=== PATIENT | male | born 1990 | race Hispanic/Latino ===

== ENCOUNTER 2018-10-21 07:55 | Emergency (ER) | payer BC, SELFPAY ==
--- NOTE | 2018-10-21 09:12 | RAD ---
LEFT HAND FIFTH DIGIT THREE VIEWS: INDICATIONS: Crush injury with pain. FINDINGS: There is no fracture or dislocation. IMPRESSION: No acute osseous abnormality of the fifth digit of the left hand. POS: C
[2018-10-21] MEDS ORDERED: Ibuprofen 800 MG TAB ONE (09:48)
== END 2018-10-21 09:50 | disposition home or self-care (01) ==
LOC: ERS 07:55
DX: S56.118A Strain of flexor muscle, fascia and tendon of left little finger at forearm level, initial encounter (principal); F17.210 Nicotine dependence, cigarettes, uncomplicated; X50.9XXA Other and unspecified overexertion or strenuous movements or postures, initial encounter

== ENCOUNTER 2018-10-30 09:43 | Emergency (ER) | payer SELFPAY ==
--- NOTE | 2018-10-30 11:39 | CT ---
CT cervical spine without contrast: HISTORY: Injury, neck pain FINDINGS: The cervical lordosis is maintained. No acute fracture, subluxation or facet malalignment is identifi ed.
--- NOTE | 2018-10-30 11:43 | RAD ---
XR Shoulder Lt 3 View STANDARD History: [Injury. Left arm pain.] Comparison: None. Findings: No fracture. No malalignment. Chronic clavicular joint is normal. Visualized ribs are normal. Impression: Normal examination of the left shoulder.
--- NOTE | 2018-10-30 11:44 | RAD ---
EXAM: Chest PA and lateral: HISTORY: Injury, left arm pain COMPARISON: None FINDINGS: Heart size:Within normal limits. Lungs:Mild linear stranding in the right costophrenic angle with minimal pleural thickening. No confluent pneumonia, overt edema, pleural effusion, or other acute process. IMPRESSION: Very mild right pleural thickening and minimal linear parenchymal change in the right costophrenic an gle, nonspecific. No confluent pneumonia, overt edema, or other new process.
[2018-10-30] MEDS ORDERED: Ketorolac Tromethamine 30 MG/ML VIAL ONE (12:15)
== END 2018-10-30 12:46 | disposition home or self-care (01) ==
LOC: ERS 09:43
DX: S20.212A Contusion of left front wall of thorax, initial encounter (principal); S50.812A Abrasion of left forearm, initial encounter; F17.210 Nicotine dependence, cigarettes, uncomplicated; W17.89XA Other fall from one level to another, initial encounter
CPT/HCPCS: 71046; 72125; 93005; 96372; J1885

== ENCOUNTER 2019-06-28 06:30 | Emergency (ER) | payer OTHER, SELFPAY ==
[2019-06-28 08:11] LABS: Clarity Clear (Clear); Leukocyte Negative Leu/uL (Negative); Nitrite Negative (Negative)
[2019-06-28 08:12] LABS: Bacteria/HPF None Seen HPF (None Seen); Bilirubin 1+ (Negative); Blood, Urine Negative (Negative); Glucose, Urine (Dipstick) Negative (Negative); Mucous/LPF Rare LPF (<2+); Protein, Urine (Dipstick) 100 mg/dL (Neg-Trace); RBC/HPF 0-3 HPF (0-3); Squamous Epithelial None Seen HPF (0-3); Urobilinogen 3 mg/dL (Less than 2); WBC/HPF 0-3 HPF (0-3)
[2019-06-28 09:31] LABS: Calcium Oxalate Crystals 1+ HPF (None Seen)
== END 2019-06-28 08:53 | disposition home or self-care (01) ==
LOC: ERS 06:30
DX: J11.1 Influenza due to unidentified influenza virus with other respiratory manifestations (principal); R30.0 Dysuria
CPT/HCPCS: 81003; 81015; 87804; 99283

== ENCOUNTER 2019-11-29 06:08 | Emergency (ER) | payer SELFPAY ==
[2019-11-29 06:34] LABS: #Basophils 0.1 thou/uL (0.0-0.2); #Eosinphils 0.3 thou/uL (0.0-0.7); #Lymphocytes 3.4 thou/uL (1.20-3.40); #Monocytes 1.1 thou/uL (0.11-0.59); #Neutrophils 7.9 thou/uL (1.40-6.50); %Basophils 1.1 % (0.0-1.0); %Eosinophils 2.2 % (0.0-10.0); %Lymphocytes 26.8 % (21.0-51.0); %Monocytes 8.5 % (0.0-10.0); %Neutrophils 61.3 % (42.0-75.0); Hemoglobin 15.7 g/dL (14.0-18.0); Mean Corpuscular Hemoglobin 29.9 pg (27.0-31.0); Mean Corpuscular Volume 90.7 fL (78.0-98.0); Mean Platelet Volume 6.1 fL (7.4-10.4); Platelet Count 317 thou/uL (130-400); RBC Distribution Width 12.6 % (11.5-14.5); Red Blood Cell (RBC) Count 5.25 mill/uL (4.70-6.10); White Blood Cell (WBC) Count 12.8 thou/uL (4.8-10.8)
[2019-11-29 06:58] LABS: ALT (SGPT) 26 U/L (8-55); AST (SGOT) 19 U/L (5-34); Albumin 4.7 g/dL (3.5-5.0); Alkaline Phosphatase 96 U/L (40-110); Anion Gap 16 mmol/L (10-20); BUN (Urea Nitrogen) 10 mg/dL (8.9-20.6); Bilirubin, Total 0.5 mg/dL (0.2-1.2); CK (CPK) 148 U/L (30-200); Calc. Creatinine Clearance 0 mL/min (70-130); Calcium 9.4 mg/dL (7.8-10.44); Carbon Dioxide 22 mmol/L (22-29); Chloride 105 mmol/L (98-107); Estimated GFR-MDRD Greater than 90; Globulin 3.5 g/dL (2.4-3.5); Glucose 86 mg/dL (70-105); Potassium 3.7 mmol/L (3.5-5.1); Protein, Total 8.2 g/dL (6.0-8.3); Sodium 139 mmol/L (136-145)
--- NOTE | 2019-11-29 08:24 | RAD ---
PORTABLE CHEST 1 VIEW: DATE: 11/29/2019. TIME: 6:24 AM. HISTORY: Chest pain. COMPARISON: 10/30/2018. FINDINGS: The heart size is normal. The lungs are expanded without lobar consolidation, pneumothoraces, or ple ural effusions. IMPRESSION: No radiographic evidence of acute cardiopulmonary process. POS: [id number]
--- NOTE | 2019-11-30 14:20 | EKG ---
Test Reason : Blood Pressure : / mmHG Vent. Rate : 085 BPM Atrial Rate : 085 BPM P-R Int : 146 ms QRS Dur : 076 ms QT Int : 358 ms P-R-T Axes : 057 014 004 degrees QTc Int : 426 ms Undetermined rhythm Otherwise normal ECG No ST elevation/LA Confirmed by HARRISON TRAVIS M.D. ([id number]), gettering operator FLORI PRUITT ([id number]) on 11/30/2019 2:20:26 PM Referred By: Confirmed By:HARRISON TRAVIS M.D.
== END 2019-11-29 07:17 | disposition home or self-care (01) ==
LOC: ERS 06:08
DX: R07.9 Chest pain, unspecified (principal)
CPT/HCPCS: 71045; 80053; 82550; 84484; 85025; 93005

== ENCOUNTER 2024-05-15 20:13 | Emergency (ER) | payer SELFPAY ==
[2024-05-15] MEDS ORDERED: Acetaminophen 325 MG TAB ONE (20:41)
[2024-05-15] MEDS ORDERED: HYDROcodone/Acetaminophen 5/325 mg Tablet ONE (20:41)
== END 2024-05-15 20:50 | disposition home or self-care (01) ==
LOC: ERS 20:13
DX: K08.89 Other specified disorders of teeth and supporting structures (principal)
CPT/HCPCS: 99282

== ENCOUNTER 2024-05-16 10:01 | Emergency (ER) | payer SELFPAY ==
[2024-05-16] MEDS ORDERED: Lidocaine 1% PF 5 ML VIAL ONE (11:05)
[2024-05-16] MEDS ORDERED: Bupivacaine PF 0.5% 30 ML VIAL ONE (11:06)
[2024-05-16] MEDS ORDERED: Lidocaine 1% w/Epinephrine 1:100K 20 ML VIAL ONE (11:09)
== END 2024-05-16 11:44 | disposition home or self-care (01) ==
LOC: ERS 10:01
DX: K08.89 Other specified disorders of teeth and supporting structures (principal); K02.9 Dental caries, unspecified
CPT/HCPCS: 64400; J0665